=== PATIENT | male | born 1950 | race Caucasian/White ===

== ENCOUNTER 2020-04-16 06:02 | Emergency (ER) | payer OTHER ==
--- NOTE | 2020-04-16 06:52 | ER ---
Nurse's Notes [facility] Name: Tyler Curtis Age: 69 yrs Sex: Male : 1950 Arrival Date: 04/16/2020 Time: 06:03 Bed 6 Private MD: Diagnosis: Epistaxis Presentation: 04/16 06:18 Chief complaint: Patient states: nose bleed started an hour and a half ago. no other rv symptoms. Coronavirus screen: At this time, the client does not indicate any symptoms associated with coronavirus-19. Ebola Screen: No symptoms or risks identified at this time. Initial Sepsis Screen: Does the patient meet any 2 criteria? No. Patient's initial sepsis screen is negative. Does the patient have a suspected source of infection? No. Patient's initial sepsis screen is negative. Risk Assessment: Do you want to hurt yourself or someone else? Patient reports no desire to harm self or others. Onset of symptoms was April 16, 2020 at 04:30. 06:18 Method Of Arrival: Ambulatory rv 06:18 Acuity: CLAUDIA 3 rv Triage Assessment: 06:19 General: Appears comfortable, Behavior is calm, cooperative. Pain: Denies pain. EENT: rv Nares with bleeding noted on right. Neuro: Level of Consciousness is awake, alert, obeys commands, Oriented to person, place, time, situation. Cardiovascular: Patient's skin is warm and dry. Respiratory: Airway is patent Respiratory effort is even, unlabored. Derm: Skin is intact. Historical: - Allergies: 06:21 No Known Allergies; rv - PMHx: 06:21 Hypertension; Arthritis; rv - PSHx: 06:21 None; rv - Immunization history:: Adult Immunizations up to date. - Social history:: Smoking status: Patient denies any tobacco usage or history of. Screenin:20 Abuse screen: Denies threats or abuse. Denies injuries from another. Nutritional rv screening: No deficits noted. Tuberculosis screening: No symptoms or risk factors identified. Fall Risk None identified. Assessment: 06:21 Reassessment: nose clamp applied. rv 06:45 Reassessment: nose clamp removed. bleeding stopped. rv Vital Signs: 06:18 BP 154 / 96; Pulse 119; Resp 18; Temp 98; Pulse Ox 98% ; Weight 113.4 kg; Height 6 ft. rv (182.88 cm); Pain 0/10; 06:18 Body Mass Index 33.91 (113.40 kg, 182.88 cm) rv ED Course: 06:03 Patient arrived in ED. bp1 06:06 Prashant Terry, RN is Primary Nurse. rv 06:06 [facility]C [facility]. kb 06:06 Ever Winchester MD is Attending Physician. kb 06:19 Triage completed. rv 06:20 Arm band placed on right wrist. Patient placed in the treatment room, on a stretcher, rv Patient notified of wait time. 06:20 Patient has correct armband on for positive identification. Pulse ox on. NIBP on. rv Administered Medications: No medications were administered Outcome: 06:51 Discharge ordered by . kb 07:02 Patient left the ED. sg Signatures: Arti Gray FNP-C FNP-Ckb Gay, Steven, RN RN sg Prashant Terry, FOZIA RN rv Sulma Blackman bp1
--- NOTE | 2020-04-16 06:52 | EDPHYS ---
Physician Documentation [facility] Name: Tyler Curtis Age: 69 yrs Sex: Male : 1950 Arrival Date: 04/16/2020 Time: 06:03 Bed 6 Private MD: ED Physician Ever Winchester HPI: 04/16 06:15 This 69 yrs old Male presents to ER via Unassigned with complaints of Nose Bleed. kb 06:16 The patient presents with a nose bleed, that is apparently anterior, from the right kb nare, occurred from an unknown cause, that is continuous causative factors include: unknown, and the bleeding is not resolved and continues in ER. Onset: The symptoms/episode began/occurred 30 minute(s) ago. Modifying factors: The symptoms are alleviated by pressure, the symptoms are aggravated by nothing. Associated signs and symptoms: The patient has no apparent associated signs or symptoms, Loss of consciousness: the patient experienced no loss of consciousness. Severity of symptoms: At their worst the symptoms were moderate in the emergency department the symptoms have improved moderately. The patient has not experienced similar symptoms in the past. The patient has not recently seen a physician. 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 States this has never happened before. PT is not on blood thinners. Pt has kleenex packing right nare which has stopped the bleeding. Packing removed and bleeding appears to be minimal. Nose clamp placed to continue to hold pressure. Pt requests lorazepam for anxiety, which is a home medication. Historical: - Allergies: 06:21 No Known Allergies; rv - PMHx: 06:21 Hypertension; Arthritis; rv - PSHx: 06:21 None; rv - Immunization history:: Adult Immunizations up to date. - Social history:: Smoking status: Patient denies any tobacco usage or history of. ROS: 06:16 Constitutional: Negative for fever, chills, and weight loss, Neck: Negative for injury, kb pain, and swelling, Cardiovascular: Negative for chest pain, palpitations, and edema, Respiratory: Negative for shortness of breath, cough, wheezing, and pleuritic chest pain, Abdomen/GI: Negative for abdominal pain, nausea, vomiting, diarrhea, and constipation, MS/Extremity: Negative for injury and deformity, Skin: Negative for injury, rash, and discoloration, Neuro: Negative for headache, weakness, numbness, tingling, and seizure. 06:16 ENT: Positive for nose bleed. Exam: 06:16 Constitutional: This is a well developed, well nourished patient who is awake, alert, kb and in no acute distress. Head/Face: Normocephalic, atraumatic. Chest/axilla: Normal chest wall appearance and motion. Nontender with no deformity. No lesions are appreciated. Cardiovascular: Regular rate and rhythm with a normal S1 and S2. No gallops, murmurs, or rubs. Normal PMI, no JVD. No pulse deficits. Respiratory: Lungs have equal breath sounds bilaterally, clear to auscultation and percussion. No rales, rhonchi or wheezes noted. No increased work of breathing, no retractions or nasal flaring. Abdomen/GI: Soft, non-tender, with normal bowel sounds. No distension or tympany. No guarding or rebound. No evidence of tenderness throughout. Skin: Warm, dry with normal turgor. Normal color with no rashes, no lesions, and no evidence of cellulitis. MS/ Extremity: Pulses equal, no cyanosis. Neurovascular intact. Full, normal range of motion. Neuro: Awake and alert, GCS 15, oriented to person, place, time, and situation. Cranial nerves II-XII grossly intact. Motor strength 5/5 in all extremities. Sensory grossly intact. Cerebellar exam normal. Normal gait. 06:16 ENT: Nose: bleeding, is seen from the right nare, and is minimal. Vital Signs: 06:18 BP 154 / 96; Pulse 119; Resp 18; Temp 98; Pulse Ox 98% ; Weight 113.4 kg; Height 6 ft. rv (182.88 cm); Pain 0/10; 06:18 Body Mass Index 33.91 (113.40 kg, 182.88 cm) rv MDM: 06:06 Patient medically screened. kb 06:16 Data reviewed: vital signs, nurses notes. Data interpreted: Pulse oximetry: on room air kb is 98 %. Interpretation: normal. 06:48 Counseling: I had a detailed discussion with the patient and/or guardian regarding: the kb historical points, exam findings, and any diagnostic results supporting the discharge/admit diagnosis, the need for outpatient follow up, an ENT specialist, to return to the emergency department if symptoms worsen or persist or if there are any questions or concerns that arise at home. ED course: Clamp removed, bleeding has stopped. Pt will follow up with ENT, will call today for an appt. Administered Medications: No medications were administered Disposition: 11:05 Co-signature as Attending Physician, Ever Winchester MD I agree with the assessment and yamilet plan of care. Disposition: 04/16/20 06:51 Discharged to Home. Impression: Epistaxis. - Condition is Stable. - Discharge Instructions: Nosebleed, [id number]. - Medication Reconciliation Form, Thank You Letter, Antibiotic Education, Prescription Opioid Use form. - Follow up: Emergency Department; When: As needed; Reason: Worsening of condition. Follow up: Private Physician; When: 2 - 3 days; Reason: Recheck today's complaints, Continuance of care, Re-evaluation by your physician. 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 States this has kb never happened before. PT is not on blood thinners. Pt has kleenex packing right nare which has stopped the bleeding. Packing removed and bleeding appears to have stopped. Nose clamp placed to continue to hold pressure. . kb 06:20 06:16 Data interpreted: Pulse oximetry: on room air is 100 %. Interpretation: normal. 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 States this has kb never happened before. PT is not on blood thinners. Pt has kleenex packing right nare which has stopped the bleeding. Packing removed and bleeding appears to be minimal. Nose clamp placed to continue to hold pressure. . kb 07:02 06:51 04/16/2020 06:51 Discharged to Home. Impression: Epistaxis. Condition is Stable. sg Forms are Medication Reconciliation Form, Thank You Letter, Antibiotic Education, Prescription Opioid Use. Follow up: Emergency Department; When: As needed; Reason: Worsening of condition. Follow up: Private Physician; When: 2 - 3 days; Reason: Recheck today's complaints, Continuance of care, Re-evaluation by your physician. kb
[2020-04-16 07:07] VITALS: BP 154/96; TEMP 98; O2SAT 98
== END 2020-04-16 07:02 | disposition home or self-care (01) ==
LOC: ER 06:02
DX: R04.0 Epistaxis (principal); I10 Essential (primary) hypertension
CPT/HCPCS: 99282